=== PATIENT | male | born 1940 | race Caucasian/White ===

== ENCOUNTER 2017-05-21 15:21 | Emergency (ER) | payer MEDICARE, BC ==
[2017-05-21] MEDS ORDERED: Acetaminophen/Codeine 30-300mg Tablet ONE (16:22)
[2017-05-21] MEDS ORDERED: Adacel (T-DAP) 0.5 ML VIAL ONE (16:22)
--- NOTE | 2017-05-21 16:25 | RAD ---
CHEST 1 VIEW RIGHT RIBS 3 VIEWS: Date: 05/21/17 HISTORY: Right rib pain. Patient fell. Post-traumatic pain. COMPARISON: None. FINDINGS: 1 VIEW CHEST: Atherosclerosis of the aorta. Normal cardiac silhouette. Pulmonary vessels and hilum are normal. Cost ophrenic angles are clear. No consolidation or masses. No pneumothorax. Calcified granuloma in the ri ght mid lung is noted. Left rotator cuff tear is identified. No osseous abnormalities. 3 VIEWS RIGHT RIBS: No fracture. No cortical irregularity. No periosteal reaction. IMPRESSION: 1. No fracture. 2. No acute cardiopulmonary process. 3. Atherosclerosis. POS: [facility]
--- NOTE | 2017-05-21 17:03 | CT ---
CT ABDOMEN AND PELVIS WITHOUT IV CONTRAST: History: Right rib pain after a fall. Technique: Lack of intravenous contrast limits sensitivity for evaluation for parenchymal organ injur y. However, the lung bases are clear without evidence of pneumothorax or pleural effusion. No lower r ight sided rib fracture is seen. There are median sternotomy wires present with post-surgical change in the lower lumbar spine related to posterior fusion of the lumbosacral junction with bipedicular screws and posterior rods transfixi ng this level. There is increased density layering within the gallbladder lumen probably related to sludge and/or ga llbladder calculi. The liver, spleen, pancreas, and right kidney and urinary bladder demonstrate a grossly normal nonenh anced CT appearance. There is nodular thickening involving each adrenal gland. I am not sure if this related to small nodules or rather related to nodular thickening. Nevertheless, attenuation coefficie nt would be consistent with an adrenal adenoma if these represent nodules as opposed to thickening. There is a 2.8 cm low density lesion in the inferior pole of the left kidney which is difficult to ch aracterize on this nonenhanced CT scan exam. Attenuation coefficient on nonenhanced CT scan exam sugg ests a renal cyst. There is a smaller hypodense lesion in the midportion of the left kidney which can not be further characterized. This measures 1.4 cm. No renal or ureteral calculi are seen bilaterally. Dense vascular calcifications are seen in the visualized coronary arteries as well as the lower thora cic aorta and involving the abdominal aorta and iliac arteries. No free fluid or free intraperitoneal gas is seen in the abdomen or pelvis. IMPRESSION: 1. No acute findings are seen in the abdomen on this nonenhanced CT scan exam. 2. Too small to characterize hypodense lesion mid portion left kidney with hypodense lesion at the in ferior pole, statistically probably representing a cyst, but post contrast imaging was not obtained f or further evaluation. 3. Cholelithiasis. 4. Post-surgical changes of the lower lumbar spine with prominent degenerative changes in the lower l umbar spine. POS: [facility]
== END 2017-05-21 18:25 | disposition home or self-care (01) ==
LOC: SCSER 15:21
DX: S51.812A Laceration without foreign body of left forearm, initial encounter (principal); I10 Essential (primary) hypertension; F17.210 Nicotine dependence, cigarettes, uncomplicated; Z23 Encounter for immunization; Z86.73 Personal history of transient ischemic attack (TIA), and cerebral infarction without residual deficits; W17.89XA Other fall from one level to another, initial encounter
CPT/HCPCS: 12002; 74176; 90471; 90715; 94640; J7620

== ENCOUNTER 2018-11-21 12:59 | Outpatient (CLI) | payer MEDICARE, BC ==
--- NOTE | 2018-11-21 15:57 | MRI ---
MRI CERVICAL SPINE NONCONTRAST: 11/21/18 HISTORY: 78-year-old male with myasthenia gravis, G70.00. Difficulty walking. COMPARISON: None. FINDINGS: Images are degraded by patient motion, some more than others. There is probably no intramedullary sig nal abnormality of the spinal cord. There is certainly no syrinx. There is degenerative disc disease manifested by disc space narrowing, which is mild to moderate at C 2-3, C3-4; moderate at C6-7; and severe at C4-5 and C5-6 where there is end plate irregularity. There are broad based disc-osteophytic bar complexes encroaching upon the anterior aspect of the spinal ca nal at all levels except C7-T1. There are bilateral uncinate process osteophytes of moderate to large size at all levels from C3-4 through C6-7, encroaching upon the bilateral neural foramina. Uncinate process osteophytes are small at C2-3 and C7-T1. The C7-T1 disc space is maintained. Mild heterogeneo us bone marrow edema, probably Modic type I changes, at C4-5, C5-6, and C6-7. Thickened ligamentum fl avum encroaches upon the posterior aspect of the spinal canal contributing to the central spinal renata l stenosis, at C2-3, C4-5, C5-6, and C6-7. There are degenerative facet changes of varying degrees. T hey are mostly mild on the right side. On the left side, they are moderate to severe at C3-4, moderat e at C7-T1 and mild at other levels. Regarding caliber of spinal canal, the findings by individual mari finnegan are as follows: C1-2: No central stenosis. C2-3: No high grade central stenosis. Moderate bilateral neural foraminal stenosis, right greater th an left. C3-4: Mild central stenosis. Moderate right neural foraminal stenosis. Severe left neural foraminal s tenosis. C4-5: Severe central stenosis. Severe bilateral neural foraminal stenosis. C5-6: Severe central stenosis. Severe bilateral neural foraminal stenosis. C6-7: Moderate to severe central stenosis. Severe bilateral neural foraminal stenosis. C7-T1: No central or neural foraminal stenosis. IMPRESSION: 1. Cervical spondylosis, with several levels of high grade degenerative disc disease and facet o steoarthrosis. 2. Severe central spinal canal stenosis at C4-5 and C5-6. 3. Multilevel high grade neural foraminal stenosis, most severe bilaterally at C4-5, C5-6, and C 6-7. POS: [facility]
== END 2018-11-21 13:00 | disposition home or self-care (01) ==
LOC: SCSMRI 12:59
PROVIDERS: ATTEND Psychiatry & Neurology Neurology
DX: G70.00 Myasthenia gravis without (acute) exacerbation (principal); M47.812 Spondylosis without myelopathy or radiculopathy, cervical region; M50.30 Other cervical disc degeneration, unspecified cervical region; M46.92 Unspecified inflammatory spondylopathy, cervical region; M48.02 Spinal stenosis, cervical region
CPT/HCPCS: 72141

== ENCOUNTER 2021-08-07 22:45 | Inpatient (IN) | payer MEDICARE, BC ==
[2021-08-07 23:10] LABS: Actual Bicarbonate (HCO3a) 16.8 mEq/L (22-28); Analyzer IN Cardio ER; CO2 Tension 29.1 mmHg (35.0-45.0); Calcium, Ionized (arterial) 1.07 mmol/L (1.12-1.30); Carboxyhemoglobin (COHb) 0.3 gm% (0.0-3.0); Hemoglobin (Hb) 12.8 g/dL (14.0-18.0); O2 Tension (PaO2), arterial 67.2 mmHg (> 60.0); Potassium - ABG Lab 3.78 mmol/L (3.70-5.30); pH, Arterial 7.38 (7.35-7.45)
[2021-08-07 23:12] LABS: ALV-art Gradient 609.425 mmHg (0-20); Puncture Site RRA
[2021-08-07] MEDS ORDERED: Albuterol Sulfate 2.5 mg/0.5 ml Neb ONE (23:20)
[2021-08-07] MEDS ORDERED: Albuterol Sulfate 2.5 mg/3 ml Neb ONE (23:20)
[2021-08-07 23:29] LABS: Hemoglobin 14.7 g/dL (14.0-18.0); Mean Platelet Volume 8.7 fL (7.4-10.4); Platelet Count 123 thou/uL (130-400); RBC Distribution Width 13.6 % (11.5-14.5); Red Blood Cell (RBC) Count 4.09 mill/uL (4.70-6.10); White Blood Cell (WBC) Count 13.7 thou/uL (4.8-10.8)
[2021-08-07] MEDS ORDERED: EPINEPHrine 1 MG/10 ML Abboject SYRINGE ONE (23:44)
[2021-08-07] MEDS ORDERED: methylPREDNISolone Sod Succ/PF 125 MG/2 ML VIAL ONE (23:44)
[2021-08-07 23:47] LABS: Band 17 % (5-11); Lymphocytes 9 % (21-51); MDiff Complete? YES; Monocytes 12 % (0-10); Neutrophil 62 % (42-75)
[2021-08-07 23:57] LABS: ALT (SGPT) 19 U/L (8-55); AST (SGOT) 30 U/L (5-34); Albumin 3.6 g/dL (3.4-4.8); Alkaline Phosphatase 56 U/L (40-110); Anion Gap 29 mmol/L (10-20); BUN (Urea Nitrogen) 60 mg/dL (8.4-25.7); Bilirubin, Total 0.4 mg/dL (0.2-1.2); Calc. Creatinine Clearance 0 mL/min (70-130); Calcium 8.5 mg/dL (7.8-10.44); Carbon Dioxide 11 mmol/L (23-31); Chloride 99 mmol/L (98-107); Globulin 3.3 g/dL (2.4-3.5); Glucose 300 mg/dL (83-110); Lipase 65 U/L (8-78); Potassium 4.2 mmol/L (3.5-5.1); Protein, Total 6.9 g/dL (5.8-8.1); Sodium 135 mmol/L (136-145)
[2021-08-08 00:11] LABS: CKMB 2.1 ng/mL (0-6.6)
[2021-08-08] MEDS ORDERED: Cefepime 2 GM VIAL ONE (00:39)
[2021-08-08] MEDS ORDERED: Vancomycin 1 GM/200 ML BAG ONE (00:39)
[2021-08-08 01:12] LABS: SARS-CoV-2 NAA Rapid Test DETECTED (NotDetected)
[2021-08-08] MEDS ORDERED: Acetaminophen 650 MG Suppository PR PRN (01:47)
[2021-08-08] MEDS ORDERED: Acetaminophen 325 MG TAB PO PRN (01:47)
[2021-08-08] MEDS ORDERED: Electrolyte Replacement Protocol 1 EACH FS PRN (01:47)
[2021-08-08] MEDS ORDERED: Enoxaparin Sodium 40 MG/0.4 ML SYRINGE SC SCH ×2 (02:00→09:00)
[2021-08-08] MEDS ORDERED: Lactated Ringer's 1,000 ML IV SCH (02:15)
[2021-08-08] MEDS ORDERED: Benzonatate 100 MG CAP PO PRN ×2 (02:20)
[2021-08-08] MEDS ORDERED: Furosemide 20 MG/2 ML VIAL SLOW IVP SCH ×2 (02:30→23:45)
[2021-08-08] MEDS ORDERED: Cyclobenzaprine 10 MG TAB PO PRN (02:44)
[2021-08-08] MEDS: Albuterol 200 PUFF (6.7GM INHALER) INH SCH ×6 (02:50→23:35)
[2021-08-08 05:07] LABS: #Lymphocytes 0.8 thou/uL (1.20-3.40); #Neutrophils 11.4 thou/uL (1.40-6.50); %Basophils 0.1 % (0.0-1.0); %Eosinophils 0.1 % (0.0-10.0); %Monocytes 7.7 % (0.0-10.0); %Neutrophils 86.2 % (42.0-75.0); Hemoglobin 11.7 g/dL (14.0-18.0); Mean Corpuscular HGB CONC 33.9 g/dL (32.0-36.0); Mean Corpuscular Hemoglobin 34.9 pg (27.0-31.0); Mean Platelet Volume 8.2 fL (7.4-10.4); Platelet Count 113 thou/uL (130-400); RBC Distribution Width 13.8 % (11.5-14.5); Red Blood Cell (RBC) Count 3.35 mill/uL (4.70-6.10); White Blood Cell (WBC) Count 13.2 thou/uL (4.8-10.8)
[2021-08-08 05:17] LABS: Lactic Acid 1.6 mmol/L (0.5-2.2)
[2021-08-08 05:25] LABS: ALT (SGPT) 19 U/L (8-55); AST (SGOT) 21 U/L (5-34); Alkaline Phosphatase 50 U/L (40-110); Anion Gap 21 mmol/L (10-20); BUN (Urea Nitrogen) 64 mg/dL (8.4-25.7); Bilirubin, Total 0.3 mg/dL (0.2-1.2); Calc. Creatinine Clearance 19 mL/min (70-130); Calcium 7.8 mg/dL (7.8-10.44); Carbon Dioxide 15 mmol/L (23-31); Chloride 104 mmol/L (98-107); Globulin 2.4 g/dL (2.4-3.5); Glucose 405 mg/dL (83-110); Potassium 3.8 mmol/L (3.5-5.1); Protein, Total 5.4 g/dL (5.8-8.1); Sodium 136 mmol/L (136-145)
[2021-08-08 05:29] LABS: Troponin I 0.052 ng/mL (< 0.028)
[2021-08-08] MEDS ORDERED: Dextrose 5% in Water 1,000 ML IV PRN (07:19)
[2021-08-08] MEDS ORDERED: HumaLOG 300 UNITS/3 ML VIAL SC PRN ×2 (07:19)
[2021-08-08] MEDS ORDERED: Dextrose 50% Abboject 50 ML SYRINGE SLOW IVP PRN (07:19)
[2021-08-08] MEDS: Pantoprazole 40 MG VIAL IVP SCH (08:10)
[2021-08-08] MEDS: Heparin 5,000 UNITS/ML VIAL SC SCH ×3 (08:10→20:12)
[2021-08-08] MEDS: Rosuvastatin 20 MG TAB PO SCH (08:10)
[2021-08-08] MEDS: Dexamethasone 10 MG/ML VIAL SLOW IVP SCH (08:10)
[2021-08-08] MEDS: Potassium Chloride 20 MEQ TAB PO SCH ×2 (08:11→20:13)
[2021-08-08] MEDS: Pyridostigmine Bromide IR 60 MG TAB PO SCH ×2 (08:11→20:13)
[2021-08-08] MEDS: Nicotine 14 MG PATCH TD SCH (08:12)
[2021-08-08] MEDS: Arformoterol 15 MCG/2 ML NEB NEB SCH ×2 (08:13→19:14)
[2021-08-08] MEDS: Clopidogrel Bisulfate 75 MG TAB PO SCH (08:15)
[2021-08-08] MEDS: Ipratropium Bromide 2.5 ml Neb NEB SCH ×3 (08:18→19:12)
[2021-08-08 08:41] LABS: Troponin I 0.048 ng/mL (< 0.028)
[2021-08-08 08:43] LABS: Glucose 437 mg/dL (83-110)
[2021-08-08] MEDS ORDERED: Furosemide 40 MG/4 ML VIAL SLOW IVP SCH (09:15)
[2021-08-08] MEDS ORDERED: ALPRAZolam 0.25 MG TAB PO PRN (09:46)
[2021-08-08] MEDS ORDERED: Lantus 1000 UNITS/10 ML VIAL SC SCH ×2 (12:30→19:53)
[2021-08-08 13:46] LABS: Hemoglobin A1c 9.9 % (4.0-6.0)
[2021-08-08] MEDS: HumaLOG 300 UNITS/3 ML VIAL SC PRN (21:55)
[2021-08-08] MEDS ORDERED: Mometasone 200 MCG/Formoterol 5 MCG 120 PUFF INHALER INH SCH (22:00)
[2021-08-08] MEDS ORDERED: Lactated Ringer's 500 ML IV SCH (23:45)
[2021-08-09] MEDS: Albuterol 200 PUFF (6.7GM INHALER) INH SCH ×6 (02:39→22:19)
[2021-08-09] MEDS: HumaLOG 300 UNITS/3 ML VIAL SC PRN ×2 (06:32→11:20)
[2021-08-09 07:25] LABS: Hemoglobin 11.3 g/dL (14.0-18.0); Mean Corpuscular HGB CONC 34.3 g/dL (32.0-36.0); Mean Corpuscular Hemoglobin 34.3 pg (27.0-31.0); Mean Platelet Volume 7.8 fL (7.4-10.4); Platelet Count 141 thou/uL (130-400); RBC Distribution Width 13.5 % (11.5-14.5); Red Blood Cell (RBC) Count 3.29 mill/uL (4.70-6.10); White Blood Cell (WBC) Count 23.1 thou/uL (4.8-10.8)
[2021-08-09 07:26] LABS: Anion Gap 10 mmol/L (10-20); BUN (Urea Nitrogen) 77 mg/dL (8.4-25.7); Calc. Creatinine Clearance 18 mL/min (70-130); Calcium 8.2 mg/dL (7.8-10.44); Carbon Dioxide 26 mmol/L (23-31); Chloride 107 mmol/L (98-107); Glucose 227 mg/dL (83-110); Potassium 3.9 mmol/L (3.5-5.1); Sodium 139 mmol/L (136-145)
[2021-08-09] MEDS: Mometasone 200 MCG/Formoterol 5 MCG 120 PUFF INHALER INH SCH ×2 (08:02→18:19)
[2021-08-09] MEDS: Dexamethasone 10 MG/ML VIAL SLOW IVP SCH ×2 (08:17→20:17)
[2021-08-09] MEDS: Pantoprazole 40 MG VIAL IVP SCH (08:17)
[2021-08-09] MEDS: Heparin 5,000 UNITS/ML VIAL SC SCH ×3 (08:17→20:20)
[2021-08-09] MEDS: Rosuvastatin 20 MG TAB PO SCH (08:18)
[2021-08-09] MEDS: Clopidogrel Bisulfate 75 MG TAB PO SCH (08:18)
[2021-08-09] MEDS: Pyridostigmine Bromide IR 60 MG TAB PO SCH ×2 (08:18→20:17)
[2021-08-09] MEDS: Potassium Chloride 20 MEQ TAB PO SCH ×2 (08:18→20:18)
[2021-08-09 08:34] LABS: Band 30 % (5-11); Lymphocytes 5 % (21-51); MDiff Complete? YES; Monocytes 8 % (0-10); Neutrophil 57 % (42-75); Platelet Morphology Comment Appears Adequate; Polychromasia SLIGHT = 2-3 cells (100X) (0-2/hpf)
[2021-08-09] MEDS: Nicotine 14 MG PATCH TD SCH (08:35)
[2021-08-09] MEDS: Lantus 1000 UNITS/10 ML VIAL SC SCH (08:58)
[2021-08-09] MEDS ORDERED: Lantus 1000 UNITS/10 ML VIAL SC SCH ×2 (09:00)
[2021-08-10] MEDS: Albuterol 200 PUFF (6.7GM INHALER) INH SCH ×6 (02:09→21:50)
[2021-08-10 04:16] LABS: Hemoglobin 11.1 g/dL (14.0-18.0); Mean Corpuscular HGB CONC 34.9 g/dL (32.0-36.0); Mean Corpuscular Hemoglobin 34.1 pg (27.0-31.0); Mean Corpuscular Volume 97.7 fL (78.0-98.0); Mean Platelet Volume 7.6 fL (7.4-10.4); Platelet Count 154 thou/uL (130-400); RBC Distribution Width 13.1 % (11.5-14.5); Red Blood Cell (RBC) Count 3.25 mill/uL (4.70-6.10); White Blood Cell (WBC) Count 19.7 thou/uL (4.8-10.8)
[2021-08-10 04:34] LABS: Band 16 % (5-11); Lymphocytes 5 % (21-51); MDiff Complete? YES; Monocytes 9 % (0-10); Neutrophil 70 % (42-75); Nucleated RBC 1 % (0)
[2021-08-10 04:55] LABS: Anion Gap 15 mmol/L (10-20); BUN (Urea Nitrogen) 71 mg/dL (8.4-25.7); Calc. Creatinine Clearance 20 mL/min (70-130); Calcium 8.5 mg/dL (7.8-10.44); Carbon Dioxide 22 mmol/L (23-31); Chloride 107 mmol/L (98-107); Glucose 185 mg/dL (83-110); Sodium 140 mmol/L (136-145)
[2021-08-10] MEDS: Mometasone 200 MCG/Formoterol 5 MCG 120 PUFF INHALER INH SCH ×2 (06:38→18:19)
[2021-08-10] MEDS ORDERED: Propofol 1,000 MG/100 ML VIAL IV ONE (10:27)
[2021-08-10] MEDS ORDERED: Fentanyl BOLUS 250 ML IVPB PRN (10:30)
[2021-08-10] MEDS ORDERED: Morphine 4 MG/ML VIAL SLOW IVP PRN (10:30)
[2021-08-10] MEDS ORDERED: Propofol BOLUS 1,000 MG/100 ML VIAL IV PRN (10:30)
[2021-08-10] MEDS ORDERED: Ventilator Sedation Protocol 1 EACH FS SCH ×2 (10:30→11:00)
[2021-08-10] MEDS ORDERED: Succinylcholine Chloride 200 MG/10 ML VIAL IV SCH (11:30)
[2021-08-10] MEDS ORDERED: Rocuronium Bromide 10 MG/ML (10ML VIAL) IVP SCH (12:00)
[2021-08-10 12:44] LABS: Actual Bicarbonate (HCO3a) 17.2 mEq/L (22-28); Base Excess (BEa) -5.8 mEq/L (-2.0 to +3.0); Calcium, Ionized (arterial) 1.14 mmol/L (1.12-1.30); Carboxyhemoglobin (COHb) 0.3 gm% (0.0-3.0); Hemoglobin (Hb) 12.2 g/dL (14.0-18.0); O2 Tension (PaO2), arterial 78.8 mmHg (> 60.0); Potassium - ABG Lab 3.97 mmol/L (3.70-5.30); Puncture Site RRA; pH, Arterial 7.42 (7.35-7.45)
[2021-08-10] MEDS: Lorazepam 2 MG/ML VIAL SLOW IVP PRN (14:23)
[2021-08-10] MEDS: Heparin 5,000 UNITS/ML VIAL SC SCH ×3 (14:23→21:04)
[2021-08-10] MEDS ORDERED: Norepinephrine 8 MG/0.9% NS 250 ML IVPB SCH (15:15)
[2021-08-10] MEDS: fentaNYL Citrate/PF 2,000 MCG in Sodium Chloride 0.9% 60 ML IV SCH (16:09)
[2021-08-10] MEDS: HumaLOG 300 UNITS/3 ML VIAL SC PRN (16:14)
[2021-08-10] MEDS ORDERED: Lantus 1000 UNITS/10 ML VIAL SC SCH (17:15)
[2021-08-10] MEDS: Clopidogrel Bisulfate 75 MG TAB PO SCH (17:19)
[2021-08-10] MEDS: Potassium Chloride 20 MEQ TAB PO SCH ×2 (17:19→21:03)
[2021-08-10] MEDS: Dexamethasone 10 MG/ML VIAL SLOW IVP SCH ×2 (17:19→21:03)
[2021-08-10] MEDS: Rosuvastatin 20 MG TAB PO SCH (17:19)
[2021-08-10] MEDS: Nicotine 14 MG PATCH TD SCH (17:19)
[2021-08-10] MEDS: Lantus 1000 UNITS/10 ML VIAL SC SCH (17:19)
[2021-08-10] MEDS: Pyridostigmine Bromide IR 60 MG TAB PO SCH (17:20)
[2021-08-10] MEDS: Propofol 1,000 MG/100 ML VIAL IV PRN (19:05)
[2021-08-10] MEDS: Pyridostigmine Bromide IR 60 MG TAB PER TUBE SCH (21:04)
[2021-08-11] MEDS: Albuterol 200 PUFF (6.7GM INHALER) INH SCH ×6 (02:15→22:34)
[2021-08-11] MEDS: HumaLOG 300 UNITS/3 ML VIAL SC PRN ×2 (04:03→17:00)
[2021-08-11] MEDS: Propofol 1,000 MG/100 ML VIAL IV PRN ×2 (04:31→14:29)
[2021-08-11 04:50] LABS: Anion Gap 18 mmol/L (10-20); BUN (Urea Nitrogen) 79 mg/dL (8.4-25.7); CRP (Inflammatory) 3.34 mg/dL (= or < 0.5); Calc. Creatinine Clearance 18 mL/min (70-130); Calcium 8.4 mg/dL (7.8-10.44); Carbon Dioxide 20 mmol/L (23-31); Chloride 110 mmol/L (98-107); Glucose 178 mg/dL (83-110); Potassium 3.7 mmol/L (3.5-5.1); Sodium 144 mmol/L (136-145)
[2021-08-11 05:04] LABS: Band 12 % (5-11); Hemoglobin 11.3 g/dL (14.0-18.0); Lymphocytes 7 % (21-51); MDiff Complete? YES; Mean Corpuscular Hemoglobin 34.5 pg (27.0-31.0); Mean Corpuscular Volume 98.6 fL (78.0-98.0); Mean Platelet Volume 7.6 fL (7.4-10.4); Monocytes 9 % (0-10); Neutrophil 72 % (42-75); Platelet Count 166 thou/uL (130-400); Red Blood Cell (RBC) Count 3.29 mill/uL (4.70-6.10); White Blood Cell (WBC) Count 15.6 thou/uL (4.8-10.8)
[2021-08-11] MEDS: Mometasone 200 MCG/Formoterol 5 MCG 120 PUFF INHALER INH SCH ×2 (07:36→19:44)
[2021-08-11 07:47] LABS: Actual Bicarbonate (HCO3a) 23.5 mEq/L (22-28); Base Excess (BEa) 0.4 mEq/L (-2.0 to +3.0); CO2 Tension 32.4 mmHg (35.0-45.0); Calcium, Ionized (arterial) 1.09 mmol/L (1.12-1.30); Carboxyhemoglobin (COHb) 0.3 gm% (0.0-3.0); Hemoglobin (Hb) 9.5 g/dL (14.0-18.0); O2 Tension (PaO2), arterial 61.1 mmHg (> 60.0); Potassium - ABG Lab 4.63 mmol/L (3.70-5.30); pH, Arterial 7.48 (7.35-7.45)
[2021-08-11 08:01] LABS: Puncture Site RBA
[2021-08-11] MEDS: Dexamethasone 10 MG/ML VIAL SLOW IVP SCH ×2 (09:33→20:12)
[2021-08-11] MEDS: Nicotine 14 MG PATCH TD SCH (09:33)
[2021-08-11] MEDS: Polyethylene Glycol 3350 17 GM Packet PO SCH (09:33)
[2021-08-11] MEDS: Senokot S 8.6-50 MG TAB PO SCH ×2 (09:34→20:11)
[2021-08-11] MEDS: Pyridostigmine Bromide IR 60 MG TAB PER TUBE SCH ×2 (09:34→20:11)
[2021-08-11] MEDS: Clopidogrel Bisulfate 75 MG TAB PO SCH (09:34)
[2021-08-11] MEDS: Rosuvastatin 20 MG TAB PO SCH (09:35)
[2021-08-11] MEDS: Lantus 1000 UNITS/10 ML VIAL SC SCH (09:36)
[2021-08-11] MEDS: Heparin 5,000 UNITS/ML VIAL SC SCH ×3 (09:39→20:11)
[2021-08-11] MEDS: Pantoprazole 40 MG VIAL IVP SCH (10:08)
[2021-08-11] MEDS ORDERED: Furosemide 40 MG/4 ML VIAL SLOW IVP SCH (12:30)
[2021-08-12] MEDS: fentaNYL Citrate/PF 2,000 MCG in Sodium Chloride 0.9% 60 ML IV SCH (00:08)
[2021-08-12] MEDS: Propofol 1,000 MG/100 ML VIAL IV PRN ×2 (00:09→09:29)
[2021-08-12] MEDS: Albuterol 200 PUFF (6.7GM INHALER) INH SCH ×6 (02:06→21:23)
[2021-08-12 05:07] LABS: Anion Gap 16 mmol/L (10-20); BUN (Urea Nitrogen) 92 mg/dL (8.4-25.7); CRP (Inflammatory) 1.93 mg/dL (= or < 0.5); Calc. Creatinine Clearance 17 mL/min (70-130); Calcium 8.2 mg/dL (7.8-10.44); Carbon Dioxide 22 mmol/L (23-31); Chloride 110 mmol/L (98-107); Glucose 193 mg/dL (83-110); Potassium 4.1 mmol/L (3.5-5.1); Sodium 144 mmol/L (136-145)
[2021-08-12 05:39] LABS: Band 16 % (5-11); Hemoglobin 8.8 g/dL (14.0-18.0); Lymphocytes 7 % (21-51); MDiff Complete? YES; Mean Corpuscular HGB CONC 34.3 g/dL (32.0-36.0); Mean Corpuscular Hemoglobin 34.2 pg (27.0-31.0); Mean Corpuscular Volume 99.6 fL (78.0-98.0); Mean Platelet Volume 7.7 fL (7.4-10.4); Metamyelocyte 1 % (0-0); Monocytes 3 % (0-10); Neutrophil 73 % (42-75); Platelet Count 192 thou/uL (130-400); Platelet Morphology Comment Appears Adequate; Red Blood Cell (RBC) Count 2.58 mill/uL (4.70-6.10); White Blood Cell (WBC) Count 20.3 thou/uL (4.8-10.8)
[2021-08-12] MEDS: Mometasone 200 MCG/Formoterol 5 MCG 120 PUFF INHALER INH SCH ×2 (06:58→19:02)
[2021-08-12 07:31] VITALS: BMI 23.8
[2021-08-12 07:43] LABS: Actual Bicarbonate (HCO3a) 21.2 mEq/L (22-28); Base Excess (BEa) -2.9 mEq/L (-2.0 to +3.0); CO2 Tension 33.9 mmHg (35.0-45.0); Calcium, Ionized (arterial) 1.09 mmol/L (1.12-1.30); Carboxyhemoglobin (COHb) 0.2 gm% (0.0-3.0); Hemoglobin (Hb) 9.9 g/dL (14.0-18.0); O2 Tension (PaO2), arterial 86.5 mmHg (> 60.0); Potassium - ABG Lab 4.19 mmol/L (3.70-5.30); pH, Arterial 7.41 (7.35-7.45)
[2021-08-12 08:04] LABS: ALV-art Gradient 370.225 mmHg (0-20); Puncture Site RRA
[2021-08-12] MEDS: Heparin 5,000 UNITS/ML VIAL SC SCH ×3 (08:55→21:07)
[2021-08-12] MEDS: Dexamethasone 10 MG/ML VIAL SLOW IVP SCH ×2 (08:55→21:07)
[2021-08-12] MEDS: Clopidogrel Bisulfate 75 MG TAB PO SCH (08:55)
[2021-08-12] MEDS: Nicotine 14 MG PATCH TD SCH (08:55)
[2021-08-12] MEDS: Pyridostigmine Bromide IR 60 MG TAB PER TUBE SCH ×2 (08:56→21:07)
[2021-08-12] MEDS: Lantus 1000 UNITS/10 ML VIAL SC SCH (08:56)
[2021-08-12] MEDS: Senokot S 8.6-50 MG TAB PO SCH ×2 (08:56→21:07)
[2021-08-12] MEDS: Pantoprazole 40 MG VIAL IVP SCH (08:56)
[2021-08-12] MEDS: Rosuvastatin 20 MG TAB PO SCH (08:56)
[2021-08-12] MEDS: Polyethylene Glycol 3350 17 GM Packet PO SCH (09:28)
[2021-08-12] MEDS: HumaLOG 300 UNITS/3 ML VIAL SC PRN ×2 (09:28→21:25)
[2021-08-12] MEDS: Vecuronium 10 MG VIAL IVP PRN (12:08)
[2021-08-12] MEDS: Lorazepam 2 MG/ML VIAL SLOW IVP PRN (12:08)
[2021-08-13 01:50] LABS: CKMB 2.9 ng/mL (0-6.6)
[2021-08-13] MEDS: Albuterol 200 PUFF (6.7GM INHALER) INH SCH ×6 (03:14→21:52)
[2021-08-13] MEDS: Lactated Ringer's 500 ML IV SCH ×4 (03:32→22:45)
[2021-08-13 04:10] LABS: Anion Gap 18 mmol/L (10-20); BUN (Urea Nitrogen) 108 mg/dL (8.4-25.7); Calc. Creatinine Clearance 14 mL/min (70-130); Calcium 8.4 mg/dL (7.8-10.44); Carbon Dioxide 20 mmol/L (23-31); Chloride 109 mmol/L (98-107); Glucose 166 mg/dL (83-110); Potassium 4.1 mmol/L (3.5-5.1); Sodium 143 mmol/L (136-145)
[2021-08-13 04:21] LABS: Troponin I 0.098 ng/mL (< 0.028)
[2021-08-13 05:32] LABS: Band 6 % (5-11); Hemoglobin 11.1 g/dL (14.0-18.0); Lymphocytes 10 % (21-51); MDiff Complete? YES; Mean Corpuscular HGB CONC 34.6 g/dL (32.0-36.0); Mean Corpuscular Hemoglobin 34.3 pg (27.0-31.0); Mean Corpuscular Volume 99.2 fL (78.0-98.0); Mean Platelet Volume 7.7 fL (7.4-10.4); Monocytes 10 % (0-10); Myelocyte 1 % (0-0); Neutrophil 72 % (42-75); Platelet Count 199 thou/uL (130-400); Platelet Morphology Comment Appears Adequate; Promyelocytes 1 % (0-0); RBC Distribution Width 13.4 % (11.5-14.5); RBC Morphology Normal; Red Blood Cell (RBC) Count 3.24 mill/uL (4.70-6.10); White Blood Cell (WBC) Count 30.1 thou/uL (4.8-10.8)
[2021-08-13] MEDS: Mometasone 200 MCG/Formoterol 5 MCG 120 PUFF INHALER INH SCH ×2 (07:46→19:01)
[2021-08-13 07:51] LABS: Actual Bicarbonate (HCO3a) 20.1 mEq/L (22-28); Base Excess (BEa) -4.7 mEq/L (-2.0 to +3.0); CO2 Tension 36.2 mmHg (35.0-45.0); Calcium, Ionized (arterial) 1.09 mmol/L (1.12-1.30); Carboxyhemoglobin (COHb) 0.3 gm% (0.0-3.0); Hemoglobin (Hb) 10.8 g/dL (14.0-18.0); Potassium - ABG Lab 3.85 mmol/L (3.70-5.30); pH, Arterial 7.36 (7.35-7.45)
[2021-08-13 08:13] LABS: Puncture Site LRA
[2021-08-13] MEDS ORDERED: Rosuvastatin 10 MG TAB PO SCH (09:00)
[2021-08-13] MEDS: Nicotine 14 MG PATCH TD SCH (09:20)
[2021-08-13] MEDS ORDERED: Furosemide 40 MG/4 ML VIAL SLOW IVP SCH (09:30)
[2021-08-13] MEDS: Dexamethasone 10 MG/ML VIAL SLOW IVP SCH ×2 (11:01→20:54)
[2021-08-13] MEDS: Propofol 1,000 MG/100 ML VIAL IV PRN (11:01)
[2021-08-13] MEDS: Senokot S 8.6-50 MG TAB PO SCH ×2 (11:01→20:44)
[2021-08-13] MEDS: Polyethylene Glycol 3350 17 GM Packet PO SCH (11:01)
[2021-08-13] MEDS: Clopidogrel Bisulfate 75 MG TAB PO SCH (11:02)
[2021-08-13] MEDS: Pyridostigmine Bromide IR 60 MG TAB PER TUBE SCH ×2 (11:02→20:44)
[2021-08-13] MEDS: Heparin 5,000 UNITS/ML VIAL SC SCH ×3 (11:02→20:45)
[2021-08-13] MEDS: Pantoprazole 40 MG VIAL IVP SCH (11:13)
[2021-08-13] MEDS: Vecuronium 10 MG VIAL IVP PRN (11:24)
[2021-08-13] MEDS: Lantus 1000 UNITS/10 ML VIAL SC SCH (11:46)
[2021-08-13] MEDS: HumaLOG 300 UNITS/3 ML VIAL SC PRN ×3 (11:46→21:19)
[2021-08-13 12:00] LABS: Actual Bicarbonate (HCO3a) 18.6 mEq/L (22-28); Base Excess (BEa) -8.2 mEq/L (-2.0 to +3.0); CO2 Tension 43.4 mmHg (35.0-45.0); Calcium, Ionized (arterial) 1.09 mmol/L (1.12-1.30); Carboxyhemoglobin (COHb) 0.3 gm% (0.0-3.0); Hemoglobin (Hb) 11.5 g/dL (14.0-18.0); Potassium - ABG Lab 4.04 mmol/L (3.70-5.30)
[2021-08-13 12:54] LABS: O2 Tension (PaO2), arterial 56.9 mmHg (> 60.0); Puncture Site LRA; pH, Arterial 7.25 (7.35-7.45)
[2021-08-13 12:56] LABS: Troponin I 0.102 ng/mL (< 0.028)
[2021-08-13 14:27] VITALS: BP 94/56
[2021-08-13] MEDS: fentaNYL Citrate/PF 2,000 MCG in Sodium Chloride 0.9% 60 ML IV SCH (17:33)
[2021-08-14] MEDS ORDERED: Scopolamine 1.5 mg/72 hour Patch TD PRN (00:17)
[2021-08-14 02:47] VITALS: TEMP 94.6
== END 2021-08-14 01:48 | disposition expired | DRG 871 ==
LOC: ERS 22:45 → CCU 08-08 01:14 → IMCU/EMU 08-08 14:36 → CCU 08-10 10:26
PROVIDERS: ADMIT Family Medicine; ATTEND Family Medicine
PROC: 5A09457 Assistance with Respiratory Ventilation, 24-96 Consecutive Hours, Continuous Positive Airway Pressure (ICD-10-PCS; 2021-08-08)
PROC: 8E0ZXY6 Isolation (ICD-10-PCS; 2021-08-08)
PROC: 3E03329 Introduction of Other Anti-infective into Peripheral Vein, Percutaneous Approach (ICD-10-PCS; 2021-08-08)
PROC: 0BH18EZ Insertion of Endotracheal Airway into Trachea, Via Natural or Artificial Opening Endoscopic (ICD-10-PCS; principal; 2021-08-10)
PROC: 5A1945Z Respiratory Ventilation, 24-96 Consecutive Hours (ICD-10-PCS; 2021-08-10)
DX: A41.89 Other specified sepsis (principal); U07.1 COVID-19; J12.82 Pneumonia due to coronavirus disease 2019; I50.23 Acute on chronic systolic (congestive) heart failure; J80 Acute respiratory distress syndrome; N17.9 Acute kidney failure, unspecified; J44.0 Chronic obstructive pulmonary disease with (acute) lower respiratory infection; I13.0 Hypertensive heart and chronic kidney disease with heart failure and stage 1 through stage 4 chronic kidney disease, or unspecified chronic kidney disease; E87.2 Acidosis; I24.8 Other forms of acute ischemic heart disease; Z51.5 Encounter for palliative care; F17.210 Nicotine dependence, cigarettes, uncomplicated; N18.9 Chronic kidney disease, unspecified; I25.10 Atherosclerotic heart disease of native coronary artery without angina pectoris; I95.9 Hypotension, unspecified; D53.9 Nutritional anemia, unspecified; E78.5 Hyperlipidemia, unspecified; E11.22 Type 2 diabetes mellitus with diabetic chronic kidney disease; F41.1 Generalized anxiety disorder; H54.61 Unqualified visual loss, right eye, normal vision left eye; G70.00 Myasthenia gravis without (acute) exacerbation; E78.00 Pure hypercholesterolemia, unspecified; E11.65 Type 2 diabetes mellitus with hyperglycemia; R34 Anuria and oliguria; I46.9 Cardiac arrest, cause unspecified; Z95.1 Presence of aortocoronary bypass graft; Z79.82 Long term (current) use of aspirin; Z79.899 Other long term (current) drug therapy; Z79.02 Long term (current) use of antithrombotics/antiplatelets; Z88.0 Allergy status to penicillin; Z78.1 Physical restraint status; I25.2 Old myocardial infarction; Z95.5 Presence of coronary angioplasty implant and graft; Z98.890 Other specified postprocedural states; I69.398 Other sequelae of cerebral infarction; Z82.49 Family history of ischemic heart disease and other diseases of the circulatory system; Z79.52 Long term (current) use of systemic steroids; I69.341 Monoplegia of lower limb following cerebral infarction affecting right dominant side
CPT/HCPCS: 36415; 36416; 36600; 71045; 80048; 80053; 82553; 82607; 82746; 82805; 83036; 83605; 83690; 83880; 84145; 84484; 85025; 86140; 87040; 93005; 93010; 94002; 94003; 94640; 94660; 96365; 96375; C9113; J0171; J0330; J0692; J1100; J1644; J1815; J1940; J2060; J2704; J2930; J3010; J3370; J3490; J7120; J7611; J7620; U0002